=== PATIENT | female | born 1995 | race Caucasian/White ===

== ENCOUNTER → 2018-01-23 | Outpatient (CLI) | payer BC ==
[2018-01-23 17:03] LABS: ABSOLUTE EOSINOPHILS # (AUTO) 0.1 10^3/uL (0.0-0.6); ABSOLUTE MONOCYTES (AUTO) 0.5 10^3/uL (0.1-1.4); ABSOLUTE NEUT (AUTO) 3.2 10^3/uL (1.7-8.2); BASOPHILS % (AUTO) 0.7 % (0-2); HEMOGLOBIN 12.4 g/dL (12.0-15.5); LYMPHOCYTES % (AUTO) 33.9 % (13-45); MEAN CORPUSCULAR HEMOGLOBIN 28.6 pg (27.0-33.4); MEAN CORPUSCULAR HGB CONC 33.4 g/dL (32.0-36.0); MEAN CORPUSCULAR VOLUME 86 fl (80-97); PLATELET COUNT 253 10^3/uL (150-450); RED BLOOD COUNT 4.32 10^6/uL (3.72-5.28); RED CELL DISTRIBUTION WIDTH 13.8 % (11.5-14.0); SEGMENTED NEUTROPHILS % (AUTO) 55.4 % (42-78); TOTAL CELLS COUNTED % (AUTO) 100 %; WHITE BLOOD COUNT 5.7 10^3/uL (4.0-10.5)
[2018-01-23 17:20] LABS: ALANINE AMINOTRANSFERASE 20 U/L (9-52); ALBUMIN 4.2 g/dL (3.5-5.0); ALKALINE PHOSPHATASE 49 U/L (38-126); ANION GAP 13 (5-19); ASPARTATE AMINO TRANSFERASE 13 U/L (14-36); BILIRUBIN,DIRECT 0.2 mg/dL (0.0-0.4); BILIRUBIN,TOTAL 0.2 mg/dL (0.2-1.3); BLOOD UREA NITROGEN 12 mg/dL (7-20); CALCIUM 9.7 mg/dL (8.4-10.2); CARBON DIOXIDE 27 mmol/L (22-30); CHLORIDE 104 mmol/L (98-107); CHOLESTEROL 184.82 mg/dL (0-200); GLUCOSE 93 mg/dL (75-110); SODIUM 143.5 mmol/L (137-145); TOTAL PROTEIN 7.2 g/dL (6.3-8.2); TRIGLYCERIDES 130 mg/dL (<150)
[2018-01-23 17:31] LABS: DIRECT LDL 106 mg/dL (<100)
[2018-01-23 17:36] LABS: FREE T4 (FREE THYROXINE) 1.09 ng/dL (0.78-2.19)
[2018-01-23 17:50] LABS: THYROID STIMULATING HORMONE 1.37 uIU/mL (0.47-4.68)
== END ==
LOC: LAB 16:42
PROVIDERS: ATTEND Physician Assistant
DX: R94.6 Abnormal results of thyroid function studies (principal); Z13.220 Encounter for screening for lipoid disorders; Z79.899 Other long term (current) drug therapy
CPT/HCPCS: 36415; 80053; 80061; 84439; 84443; 85025

== ENCOUNTER → 2019-02-18 | Outpatient (CLI) | payer BC ==
[2019-02-18 16:36] LABS: ABSOLUTE EOSINOPHILS # (AUTO) 0.1 10^3/uL (0.0-0.6); ABSOLUTE LYMPHOCYTES (AUTO) 1.9 10^3/uL (0.5-4.7); ABSOLUTE MONOCYTES (AUTO) 0.5 10^3/uL (0.1-1.4); ABSOLUTE NEUT (AUTO) 3.7 10^3/uL (1.7-8.2); BASOPHILS % (AUTO) 0.6 % (0-2); EOSINOPHILS % (AUTO) 1.7 % (0-6); HEMOGLOBIN 12.8 g/dL (12.0-15.5); LYMPHOCYTES % (AUTO) 30.4 % (13-45); MEAN CORPUSCULAR HEMOGLOBIN 28.9 pg (27.0-33.4); MEAN CORPUSCULAR HGB CONC 33.8 g/dL (32.0-36.0); MEAN CORPUSCULAR VOLUME 86 fl (80-97); MONOCYTES % (AUTO) 7.7 % (3-13); PLATELET COUNT 250 10^3/uL (150-450); RED BLOOD COUNT 4.44 10^6/uL (3.72-5.28); RED CELL DISTRIBUTION WIDTH 13.4 % (11.5-14.0); SEGMENTED NEUTROPHILS % (AUTO) 59.6 % (42-78); TOTAL CELLS COUNTED % (AUTO) 100 %; WHITE BLOOD COUNT 6.2 10^3/uL (4.0-10.5)
[2019-02-18 16:48] LABS: ALANINE AMINOTRANSFERASE 19 U/L (9-52); ALBUMIN 4.6 g/dL (3.5-5.0); ALKALINE PHOSPHATASE 59 U/L (38-126); ANION GAP 8 (5-19); ASPARTATE AMINO TRANSFERASE 16 U/L (14-36); BILIRUBIN,DIRECT 0.1 mg/dL (0.0-0.4); BILIRUBIN,TOTAL 0.3 mg/dL (0.2-1.3); BLOOD UREA NITROGEN 15 mg/dL (7-20); CALCIUM 9.6 mg/dL (8.4-10.2); CARBON DIOXIDE 30 mmol/L (22-30); CHLORIDE 102 mmol/L (98-107); CHOLESTEROL 143.18 mg/dL (0-200); GLUCOSE 84 mg/dL (75-110); POTASSIUM 3.8 mmol/L (3.6-5.0); SODIUM 139.6 mmol/L (137-145); TOTAL PROTEIN 7.3 g/dL (6.3-8.2); TRIGLYCERIDES 131 mg/dL (<150)
[2019-02-18 17:00] LABS: DIRECT LDL 82 mg/dL (<100)
[2019-02-18 17:05] LABS: FREE T4 (FREE THYROXINE) 0.98 ng/dL (0.78-2.19)
[2019-02-18 17:19] LABS: THYROID STIMULATING HORMONE 1.66 uIU/mL (0.47-4.68)
== END ==
LOC: OD 15:56
PROVIDERS: ATTEND Physician Assistant
DX: Z13.220 Encounter for screening for lipoid disorders (principal); R94.6 Abnormal results of thyroid function studies; Z79.899 Other long term (current) drug therapy
CPT/HCPCS: 36415; 80053; 80061; 84439; 84443; 85025

== ENCOUNTER → 2019-08-27 | Outpatient (CLI) | payer BC ==
[2019-08-27 17:15] LABS: ABSOLUTE EOSINOPHILS # (AUTO) 0.1 10^3/uL (0.0-0.6); ABSOLUTE LYMPHOCYTES (AUTO) 1.4 10^3/uL (0.5-4.7); ABSOLUTE MONOCYTES (AUTO) 0.5 10^3/uL (0.1-1.4); ABSOLUTE NEUT (AUTO) 5.8 10^3/uL (1.7-8.2); BASOPHILS % (AUTO) 0.3 % (0-2); EOSINOPHILS % (AUTO) 1.8 % (0-6); HEMATOCRIT 34.6 % (36.0-47.0); HEMOGLOBIN 12.1 g/dL (12.0-15.5); LYMPHOCYTES % (AUTO) 17.9 % (13-45); MEAN CORPUSCULAR HEMOGLOBIN 30.7 pg (27.0-33.4); MEAN CORPUSCULAR HGB CONC 34.9 g/dL (32.0-36.0); MEAN CORPUSCULAR VOLUME 88 fl (80-97); MONOCYTES % (AUTO) 6.7 % (3-13); PLATELET COUNT 222 10^3/uL (150-450); RED BLOOD COUNT 3.94 10^6/uL (3.72-5.28); RED CELL DISTRIBUTION WIDTH 14.1 % (11.5-14.0); SEGMENTED NEUTROPHILS % (AUTO) 73.3 % (42-78); TOTAL CELLS COUNTED % (AUTO) 100 %; WHITE BLOOD COUNT 7.9 10^3/uL (4.0-10.5)
[2019-08-29 08:37] LABS: HEPATITIS C VIRUS AB 0.1 s/co ratio (0.0-0.9)
[2019-08-29 09:35] LABS: HEPATITS B SURFACE ANTIGEN Negative (Negative)
[2019-08-29 15:37] LABS: HGB A2 1.8 % (1.8-3.2); HGB SOLUBILITY RESULT Negative (Negative)
== END ==
LOC: OD 16:01
PROVIDERS: ATTEND Obstetrics & Gynecology
DX: Z34.01 Encounter for supervision of normal first pregnancy, first trimester (principal); Z13.0 Encounter for screening for diseases of the blood and blood-forming organs and certain disorders involving the immune mechanism; Z12.4 Encounter for screening for malignant neoplasm of cervix; Z11.3 Encounter for screening for infections with a predominantly sexual mode of transmission; Z13.29 Encounter for screening for other suspected endocrine disorder
CPT/HCPCS: 36415; 83020; 84443; 85025; 86592; 86701; 86762; 86803; 86804; 86850; 86900; 86901; 87086; 87088; 87340; 88142

== ENCOUNTER → 2019-10-01 | Outpatient (CLI) | payer BC ==
[2019-10-03 15:36] LABS: AFP MOM 1.08 (.)
[2019-10-04 13:48] LABS: GEST AGE BASED ON EDD (.)
== END ==
LOC: LAB 13:58
PROVIDERS: ATTEND Obstetrics & Gynecology
DX: Z36.89 Encounter for other specified antenatal screening (principal)
CPT/HCPCS: 36415; 82105

== ENCOUNTER → 2019-11-27 | Outpatient (CLI) | payer BC | LOC: OD 10:40 | PROVIDERS: ATTEND Obstetrics & Gynecology | DX: Z34.83 Encounter for supervision of other normal pregnancy, third trimester (principal); Z11.59 Encounter for screening for other viral diseases; Z11.4 Encounter for screening for human immunodeficiency virus [HIV]; Z11.3 Encounter for screening for infections with a predominantly sexual mode of transmission | CPT/HCPCS: 36415; 86592; 86701 ==

== ENCOUNTER 2020-02-16 21:08 | Outpatient (CLI) | payer BC ==
[2020-02-16 21:55] LABS: APPEARANCE,URINE CLOUDY; BILIRUBIN,URINE NEGATIVE (NEGATIVE); COLOR,URINE YELLOW; GLUCOSE, URINE 50 mg/dL (NEGATIVE); KETONES,URINE NEGATIVE (NEGATIVE); LEUKOCYTE ESTERASE,URINE SMALL (NEGATIVE); NITRITE,URINE NEGATIVE (NEGATIVE); PROTEIN,URINE 30 mg/dL (NEGATIVE); URINE SPECIFIC GRAVITY 1.024
[2020-02-16 22:18] LABS: URINE AMPHETAMINES SCREEN NEGATIVE; URINE BARBITURATES SCREEN NEGATIVE; URINE BENZODIAZEPINES SCREEN NEGATIVE; URINE COCAINE SCREEN NEGATIVE; URINE MARIJUANA (THC) SCREEN NEGATIVE; URINE METHADONE SCREEN NEGATIVE; URINE PHENCYCLIDINE SCREEN NEGATIVE
--- NOTE | 2020-02-16 23:04 | Non Stress Test Report ---
Non Stress Test Datetime Report Generated by CPN: 02/16/2020 23:04 DEMOGRAPHIC EGA NST: 40.1 VITAL SIGNS Temperature - NST: 98.5 Pulse - NST: 101 RESP - NST: 17 NBPSYS NST: 117 NBPDIA NST: 66 URINE RESULTS Urine Protein, NST: Positive Urine Ketones - NST: Negative Urine Glucose - NST: Positive Urine Blood - NST: Positive MONITORING Monitor Explained: Monitor Explained; Test Explained; Patient Verbalized Understanding Time on Monitor: 02/16/2020 21:21 Time off Monitor: 02/16/2020 22:36 NST Duration: 75 NST INTERVENTIONS NST Interventions: PO Hydration; Reposition Patient Physician Notified NST: Dr. Hasmukh BABY A: [id number] BABY A Movement : Present Contraction Frequency : x5 with irritability FHR Baseline : 125 Accelerations : 15X15 Decelerations : None Variability : Moderate 6-25bpm NST Review: Meets Criteria for Reactive NST NST Review and Verified By : ALETA Moore NST Results: Reactive NST REPORT Report Trigger: Send Report
== END 2020-02-16 22:52 | disposition home or self-care (01) ==
LOC: LC 21:08
PROVIDERS: ATTEND Obstetrics & Gynecology
DX: O48.0 Post-term pregnancy (principal); Z3A.40 40 weeks gestation of pregnancy
CPT/HCPCS: 59025; 80307; 81005

== ENCOUNTER 2020-02-17 14:13 | Inpatient (IN) | payer BC ==
[2020-02-17] MEDS ORDERED: RINGERS SOLUTION,LACTATED 1,000 ML IV ONE (14:23)
[2020-02-17] MEDS ORDERED: PENICILLIN G-K 5 MILLION UNIT VIAL ONE ×2 (14:29→18:58)
[2020-02-17] MEDS ORDERED: RINGERS SOLUTION,LACTATED 1,000 ML IV PRN (14:51)
[2020-02-17] MEDS ORDERED: MISOPROSTOL 0.2 MG TABLET ONE (14:52)
[2020-02-17] MEDS ORDERED: OXYTOCIN 10 UNIT/ML VIAL ONE (14:52)
[2020-02-17] MEDS ORDERED: LIDOCAINE 1% INJ-PF (10 MG/ML) 30 ML SDV ONE (14:53)
[2020-02-17] MEDS ORDERED: OXYTOCIN/0.9 % SODIUM CHLORIDE 30 UNIT/500 ML RTUINJ ONE (14:53)
[2020-02-17] MEDS ORDERED: PENICILLIN G POTASSIUM 5,000,000 UNIT in DEXTROSE 5%-WATER 100 ML IV ONE (15:00)
[2020-02-17] MEDS ORDERED: EPHEDRINE SULFATE INJ 50 MG/1 ML AMPULE ONE (15:02)
[2020-02-17] MEDS ORDERED: FENTANYL/BUPIVACAINE/NS/PF 300 MCG/150 ML RTUINJ EPI ONE (15:02)
[2020-02-17] MEDS ORDERED: BUPIVACAINE HCL 0.25 % INJ/PF (2.5 MG/1 ML) 30 ML VIAL ONE ×2 (15:03→22:42)
[2020-02-17 15:53] LABS: APPEARANCE,URINE SLIGHTLY-CLOUDY; BILIRUBIN,URINE NEGATIVE (NEGATIVE); COLOR,URINE YELLOW; GLUCOSE, URINE NEGATIVE (NEGATIVE); KETONES,URINE NEGATIVE (NEGATIVE); LEUKOCYTE ESTERASE,URINE TRACE (NEGATIVE); NITRITE,URINE NEGATIVE (NEGATIVE); PROTEIN,URINE NEGATIVE (NEGATIVE); URINE SPECIFIC GRAVITY 1.014; UROBILINOGEN,URINE NEGATIVE mg/dL (<2.0)
[2020-02-17 15:53] LABS: ABSOLUTE LYMPHOCYTES (AUTO) 0.9 10^3/uL (0.5-4.7); ABSOLUTE MONOCYTES (AUTO) 0.6 10^3/uL (0.1-1.4); ABSOLUTE NEUT (AUTO) 5.7 10^3/uL (1.7-8.2); BASOPHILS % (AUTO) 0.2 % (0-2); EOSINOPHILS % (AUTO) 0.6 % (0-6); HEMATOCRIT 34.3 % (36.0-47.0); HEMOGLOBIN 11.7 g/dL (12.0-15.5); LYMPHOCYTES % (AUTO) 12.9 % (13-45); MEAN CORPUSCULAR HEMOGLOBIN 29.3 pg (27.0-33.4); MEAN CORPUSCULAR HGB CONC 34.1 g/dL (32.0-36.0); MEAN CORPUSCULAR VOLUME 86 fl (80-97); MONOCYTES % (AUTO) 8.2 % (3-13); PLATELET COUNT 208 10^3/uL (150-450); RED BLOOD COUNT 3.99 10^6/uL (3.72-5.28); RED CELL DISTRIBUTION WIDTH 16.4 % (11.5-14.0); SEGMENTED NEUTROPHILS % (AUTO) 78.1 % (42-78); TOTAL CELLS COUNTED % (AUTO) 100 %; WHITE BLOOD COUNT 7.3 10^3/uL (4.0-10.5)
--- NOTE | 2020-02-17 16:00 | Admission Physical ---
Datetime Report Generated by CPN: 02/17/2020 16:00 CURRENT ADMISSION Chief Complaint: Uterine Contractions Indication for Induction: Not Applicable Admit Impression : Term, Intrauterine ; Active Labor Admit Plan: Admit to Unit; Initiate Labor Protocol ALLERGIES Medication Allergies: No Medication Allergies: No Known Allergies (02/16/2020) Latex: No Latex Allergies Food Allergies: n/a Environmental Allergies: n/a OBSTETRICAL HISTORY EDC: 02/15/2020 00:00 : 1 Para: 0 Term: 0 : 0 SAB: 0 IAB: 0 Ectopic: 0 Livin Cesareans: 0 VBACs: 0 Multiple Births: 0 Gestational Diabetes: No Rh Sensitization: No Incompetent Cervix: No ALIE: No Infertility: No ART Treatment: No Uterine Anomaly: No IUGR: No Hx Previous C/S: No Macrosomia: No Hx Loss/Stillborn: No PIH: No Hx : No Placenta Previa/Abruption: No Depression/PP Depression: No PTL/PROM: No Post Hemorrhage: No Current Procedures: Ultrasound Obstetrical History Comments: G1- Current SEE RECORDS Alcohol: No Marijuana : No Cocaine: No Other Illicit Drugs: No Cigarettes: Never Smoker. [id number] MEDICAL HISTORY Diabetes: No Blood Transfusion: No Pulmonary Disease (Asthma, TB): No Breast Disease: No Hypertension: No Sky Diver Surgery: No Heart Disease: No Hosp/Surgery: Yes Autoimmune Disorder: No Anesthetic Complications: No Kidney Disease: No Abnormal Pap Smear: No Neuro/Epilepsy: No Psychiatric Disorders: No Other Medical Diseases: No Hepatitis/Liver Disease: No Significant Family History: No Varicosities/Phlebitis: No Trauma/Violence : No Thyroid Dysfunction: No Medical History Comments: wisdom teeth, varicose veins stripped INFECTIOUS HISTORY Gonorrhea: No Genital Herpes: No Chlamydia: No Tuberculosis: No Syphilis: No Hepatitis: No HIV/AIDS Exposure: No Rash or Viral Illness: No HPV: No PHYSICAL EXAM General: Normal HEENT: Normal Neurologic: Normal Thyroid: Deferred Heart: Normal Lungs: Normal Breast: Deferred Back: Normal Abdomen: Normal Genitourinary Exam: Normal Extremities: Normal DTRs: Deferred Pelvic Type: Adequate Vital Signs: Reviewed; Within Normal Limits VAGINAL EXAM Dilatation: 5 Effacement: 90 Station: -1 Contraction Comments: q 2mins MEMBRANES Pooling: Negative Membranes: Intact FETUS A EGA: 40.2 Monitoring: External US FHR- Baseline: 135 Variability: Moderate 6-25bpm Accelerations: 15X15 Decelerations: Variable FHR Category: Category II Estimated Weight (gm): 4000 Presentation: Vertex Admit Comment: at 40w2d by first trimester sono (unsure of LMP). sent from office for cervical exam 5cm and frquent contractions. admitted for active labor, GBS pos. P:penicillin for GBS prophylaxis, anticipate PLANS FOR LABOR AND DELIVERY Labor and Delivery: None Pain Management: Medications; Epidural Feeding Preference: Breast Benefit of Breast Feed Discussed: Yes Circumcision: Yes INFORMED CONSENT Assignment: Toshia Hogan MD Signature: with User ID: [email or web address] : with User ID: [email or web address]
[2020-02-17 16:11] LABS: URINE AMPHETAMINES SCREEN NEGATIVE; URINE BARBITURATES SCREEN NEGATIVE; URINE BENZODIAZEPINES SCREEN NEGATIVE; URINE COCAINE SCREEN NEGATIVE; URINE MARIJUANA (THC) SCREEN NEGATIVE; URINE METHADONE SCREEN NEGATIVE; URINE PHENCYCLIDINE SCREEN NEGATIVE
[2020-02-17] MEDS: PENICILLIN G POTASSIUM 2,500,000 UNIT in DEXTROSE 5%-WATER 50 ML IV SCH ×2 (19:03→22:54)
[2020-02-18] MEDS: PENICILLIN G POTASSIUM 2,500,000 UNIT in DEXTROSE 5%-WATER 50 ML IV SCH ×2 (03:58→11:50)
[2020-02-18] MEDS ORDERED: IBUPROFEN 800 MG TABLET ONE (06:20)
[2020-02-18] MEDS ORDERED: PROMETHAZINE HCL INJ 25 MG/1 ML VIAL IV PRN (06:34)
[2020-02-18] MEDS ORDERED: ACETAMINOPHEN 650 MG SUPP.RECT PR PRN (06:34)
[2020-02-18] MEDS ORDERED: MEASLES,MUMPS&RUBELLA VACC/PF 0.5 ML VIAL SUBCUT PRN (06:34)
[2020-02-18] MEDS ORDERED: GLYCERIN/WITCH HAZEL LEAF 1 EACH MED..WIPE TP PRN (06:34)
[2020-02-18] MEDS ORDERED: NA PHOS,M-B/NA PHOS,DI-BA (ADULT) 133 ML ENEMA PR PRN (06:34)
[2020-02-18] MEDS ORDERED: DIPH/PERTUSS(ACELL)/TETANUS VAC/PF 0.5 ML SYR (>=10YO) IM PRN (06:34)
[2020-02-18] MEDS ORDERED: PROMETHAZINE HCL 25 MG SUPP.RECT PR PRN (06:34)
[2020-02-18] MEDS ORDERED: PROMETHAZINE HCL 25 MG TABLET PO PRN (06:34)
[2020-02-18] MEDS ORDERED: PSEUDOEPHEDRINE HCL 30 MG TABLET PO PRN (06:34)
[2020-02-18] MEDS ORDERED: OXYTOCIN/0.9 % SODIUM CHLORIDE 30 UNIT/500 ML RTUINJ IV PRN (06:34)
[2020-02-18] MEDS ORDERED: BENZOCAINE/MENTHOL AEROSOL SPRAY 56 ML TOP PRN (06:34)
[2020-02-18] MEDS ORDERED: DIPHENHYDRAMINE HCL 25 MG CAPSULE PO PRN (06:34)
[2020-02-18] MEDS ORDERED: DIBUCAINE 1% OINTMENT 28 GM TP PRN (06:34)
[2020-02-18] MEDS ORDERED: ZOLPIDEM TARTRATE 5 MG TABLET PO PRN (06:34)
[2020-02-18] MEDS ORDERED: ACETAMINOPHEN WITH CODEINE #3 TABLET PO PRN ×2 (06:34)
[2020-02-18] MEDS ORDERED: MAGNESIUM HYDROXIDE SUSP 30 ML UDCUP PO PRN (06:34)
[2020-02-18] MEDS ORDERED: CEFAZOLIN 2 GM/D5W RTU 2 GM/50 ML RTUPB IV ONE ×2 (06:40→07:00)
--- NOTE | 2020-02-18 10:00 | Delivery Summary ---
Del Sum A-C Datetime Report Generated by CPN: 02/18/2020 10:00 DELIVERY PERSONNEL DELIVERY PERSONNEL: [id number] Delivery Doctor:: Toshia Hogan MD LICENSED OPTICIAN:: Tony Burgos LICENSED OPTICIAN Labor and Delivery Nurse:: Ann-Marie Parra RN Nursery Nurse:: Becky Salmeron Freight Router/SHELTER ADVOCATE: Sonia Echevarria, SMALL ARMS REPAIRER MATERNAL INFORMATION Delivery Anesthesia: Epidural Medications After Delivery: Pitocin 30 Units in 500ml NS/D5W Delivery QBL: 300 Maternal Complications: None Provider Comments: Called to room as patient was completely dilated and plus 2 station. Delivered after a period of pushing in vertex presentation. After delivery of the head, the shoulders and rest of the body delivered easily. Male infant vigorous at delivery. Oral suctioning and placed on Mother's chest. Cord clampling delayed 30 seconds. Third degree laceration repaired as above. Both Mother and stable. LABOR SUMMARY EDC: 02/15/2020 00:00 No. Babies in Womb: 1 Attempted: No Labor Anesthesia: Epidural LABOR INFORMATION Reason for Induction: Not Applicable Onset of Labor: 02/18/2020 16:35 Complete Dilatation: 02/18/2020 01:54 Oxytocin: Augmentation Group B Beta Strep: Positive Antibiotics # of Doses: 4 Antibiotics Time of Last Dose: 035 Name of Antibiotic Given: PCN Steroids Given: None Reason Steroids Not Administered: Not Applicable MEMBRANES Membranes Rupture Method: Spontaneous Rupture of Membranes: 02/18/2020 00:18 Length of Rupture (hr): 4.90 Amniotic Fluid Color: Clear Amniotic Fluid Amount: Large Amniotic Fluid Odor: Normal STAGES OF LABOR Stage 1 hr: -14 Stage 1 min: -41 Stage 2 hr: 3 Stage 2 min: 18 Stage 3 hr: 0 Stage 3 min: 3 Total Time in Labor hr: -11 Total Time in Labor min: -20 VAGINAL DELIVERY Episiotomy: None Laceration #1: Vaginal Laceration Extension #1: Third Degree, IIIa (Less than 50 percent ext anal sphincter thickness torn) Laceration Repair: Yes Laceration Repair Note: Repaired third degree laceration with 2-0 chromic with interrupted to reapproximate the rectal and perineal muscles. Superficial layer iwth 2-0 chromic in a running fashion Sponge Count Correct: Yes Sharps Count Correct: Yes CSECTION DELIVERY Primary Indication: N/A Secondary Indication: N/A CSection Incidence: N/A Labor: N/A Elective: N/A CSection Incision: N/A BABY A INFORMATION Delivery Date/Time: 02/18/2020 05:12 Method of Delivery: Vaginal Nurse Controlled Delivery: No Born in Route : No : N/A Forceps: N/A Vacuum Extraction: N/A Shoulder Dystocia : No PRESENTATION/POSITION BABY A Presentation: Cephalic Cephalic Presentation: Vertex Vertex Position: Left Occipital Anterior Breech Presentation: N/A PLACENTA INFORMATION BABY A Placenta Delivery Time : 02/18/2020 05:15 Placenta Method of Delivery: Spontaneous Placenta Status: Delivered SCORES BABY A Heart Rate 1 min: >100 bpm Resp Effort 1 min: Good Cry Reflex Irritability 1 min: Cough or Sneeze or Pulls Away Muscle Tone 1 min: Active Motion Color 1 min: Blue/Pale SCORE 1 MIN: 8 Heart Rate 5 min: >100 bpm Resp Effort 5 min: Good Cry Reflex Irritability 5 min: Cough or Sneeze or Pulls Away Muscle Tone 5 min: Active Motion Color 5 min: Body [place], Extremities Blue SCORE 5 MIN: 9 INFANT INFORMATION BABY A Gestational Age at Delivery: 40.3 Gestational Status: Full Term- 39- 40.6 Weeks Infant Outcome : Liveborn Condition : Stable Infant Sex: Male IDENTIFICATION BABY A Verification Date/Time: 02/18/2020 05:35 ID Band Number: [id number] Mother's Name Verified: Yes RN Verifying Infant: E. Jilek RN/ S. Wale WEIGHT/LENGTH BABY A Birthweight (gm): 4160 Weight (lb): 9 Weight (oz): 3 Length (in): 21.00 Length (cm): 53.34 CORD INFORMATION BABY A No. Cord Vessels: 3 Nuchal Cord : N/A Cord Blood Taken: Yes-For Eval (Mom's Blood Type - or O+) Infant Suction: Mouth ASSESSMENT BABY A Respirations: Appears Normal Skin to Skin: No Skin to Skin Time (min): 60 Band Attacher/ALS Called : No BABY B INFORMATION : N/A SIGNATURES Signature: with User ID: Ru : with User ID: [id number] : I was personally available for consultation and serving as supervising physician for the MLP.
[2020-02-18] MEDS: PRENATAL VITAMIN W DHA CAPSULE PO SCH (10:47)
[2020-02-18] MEDS: SENNOSIDES/DOCUSATE 8.6-50 MG 1 EACH TABLET PO SCH (10:47)
[2020-02-18] MEDS: DOCUSATE SODIUM 100 MG CAPSULE PO SCH ×2 (10:47→17:36)
[2020-02-18] MEDS: FAMOTIDINE 20 MG TABLET PO SCH ×2 (10:47→21:35)
[2020-02-18] MEDS: FERROUS SULFATE 325 MG TABLET PO SCH ×2 (10:47→17:36)
[2020-02-18] MEDS: IBUPROFEN 800 MG TABLET PO SCH ×3 (11:47→21:33)
[2020-02-19] MEDS: IBUPROFEN 800 MG TABLET PO SCH ×3 (05:20→23:32)
[2020-02-19 08:33] LABS: HEMATOCRIT 22.6 % (36.0-47.0); MEAN CORPUSCULAR HEMOGLOBIN 29.4 pg (27.0-33.4); MEAN CORPUSCULAR HGB CONC 34.2 g/dL (32.0-36.0); MEAN CORPUSCULAR VOLUME 86 fl (80-97); PLATELET COUNT 164 10^3/uL (150-450); RED BLOOD COUNT 2.63 10^6/uL (3.72-5.28); RED CELL DISTRIBUTION WIDTH 16.7 % (11.5-14.0); WHITE BLOOD COUNT 9.1 10^3/uL (4.0-10.5)
[2020-02-19 09:05] LABS: HEMOGLOBIN 7.7 g/dL (12.0-15.5)
[2020-02-19] MEDS ORDERED: IRON SUCROSE COMPLEX INJ/PF 100 MG/5 ML SDV IV ONE (10:15)
--- NOTE | 2020-02-19 10:33 | PDOC PROGRESS REPORT ---
Subjective-OB Progress Note for:: 02/19/20 - PP Day #1, doing well, UOB, voiding, no complaints, Hx 3rd degree laceration at delivery, Pt states minimal discomfort so far, O+, rubella immune Physical Exam (OB) Vital Signs: Temp Pulse Resp BP Pulse Ox 98.1 F 80 16 94/51 L 94 02/19/20 07:59 02/19/20 07:59 02/19/20 07:59 02/19/20 07:59 02/19/20 07:59 Intake & Output 02/18/20 02/19/20 02/20/20 06:59 06:59 06:59 Intake Total 600 Balance 600 Weight 73.5 kg - General General Appearance: Appears well, Alert In distress: None - PIH/Pre-Eclampsia Headache: Absent Epigastric Pain: No Visual Changes: No - Lochia Lochia Amount: Scant < 10 ml Lochia Color: Rubra/Red - Abdomen Description: Soft Hernia Present: No Fundal Description: Firm, Midline Fundal Height: u/u - u/2 - Respiratory Respiratory Status: No respiratory distress - Abdominal Distension: No distension Tenderness: Nontender - Genitourinary Genitourinary Note: voiding - Extremities Upper extremity: Normal inspection Lower extremities: Normal inspection - Neurological Cognition: Normal Orientation: AAOx4 - Psychological Associated symptoms: Normal affect, Normal mood - Skin Skin Temperature: Warm Skin Moisture: Dry Objective-Diagnostic Laboratory: 02/19/20 07:00 02/19/20 07:00 WBC 9.1 RBC 2.63 L Hgb 7.7 L D Hct 22.6 L MCV 86 MCH 29.4 MCHC 34.2 RDW 16.7 H Plt Count 164 Assessment and Plan(PN) - Assessment and Plan (2) Obstetrical laceration, third degree Is this a current diagnosis for this admission?: Yes (3) Vaginal delivery Is this a current diagnosis for this admission?: Yes Plan: Increase fiber, stool softner, ambulation encouraged, Drink plenty of fluids, Ro utine PP orders - Time Spent with Patient Time with patient: Less than 15 minutes Medications reviewed and adjusted accordingly: Yes - Disposition Anticipated Discharge: Home Within: within 24 hours
[2020-02-19] MEDS: FERROUS SULFATE 325 MG TABLET PO SCH ×2 (11:07→17:36)
[2020-02-19] MEDS: SENNOSIDES/DOCUSATE 8.6-50 MG 1 EACH TABLET PO SCH (11:07)
[2020-02-19] MEDS: DOCUSATE SODIUM 100 MG CAPSULE PO SCH ×2 (11:07→17:36)
[2020-02-19] MEDS: PRENATAL VITAMIN W DHA CAPSULE PO SCH (11:07)
[2020-02-19] MEDS: FAMOTIDINE 20 MG TABLET PO SCH ×2 (11:07→23:34)
[2020-02-20] MEDS: IBUPROFEN 800 MG TABLET PO SCH ×2 (06:11→14:06)
[2020-02-20] MEDS: DOCUSATE SODIUM 100 MG CAPSULE PO SCH (10:06)
[2020-02-20] MEDS: PRENATAL VITAMIN W DHA CAPSULE PO SCH (10:06)
[2020-02-20] MEDS: FERROUS SULFATE 325 MG TABLET PO SCH (10:06)
[2020-02-20] MEDS: SENNOSIDES/DOCUSATE 8.6-50 MG 1 EACH TABLET PO SCH (10:06)
[2020-02-20] MEDS: FAMOTIDINE 20 MG TABLET PO SCH (10:06)
--- NOTE | 2020-02-20 10:07 | PDOC PROGRESS REPORT ---
Subjective-OB Progress Note for:: 02/20/20 Subjective: Doing well, no c/o, , voiding, no bm Physical Exam (OB) Vital Signs: Temp Pulse Resp BP Pulse Ox 98.0 F 93 18 91/57 L 100 02/20/20 07:33 02/20/20 07:33 02/20/20 07:33 02/20/20 07:33 02/20/20 07:33 Intake & Output 02/19/20 02/20/20 02/21/20 06:59 06:59 06:59 Intake Total 600 600 Balance 600 600 - PIH/Pre-Eclampsia Headache: Absent Epigastric Pain: No Visual Changes: No - Lochia Lochia Amount: Small 10-25 ml Lochia Color: Rubra/Red - Abdomen Description: Tender, Soft Hernia Present: No Fundal Description: Firm, Midline Fundal Height: u/u - u/2 Objective-Diagnostic Laboratory: 02/19/20 07:00 Assessment and Plan(PN) - Assessment and Plan (1) Acute blood loss anemia Is this a current diagnosis for this admission?: Yes (2) Vaginal delivery Is this a current diagnosis for this admission?: Yes (3) Obstetrical laceration, third degree Is this a current diagnosis for this admission?: Yes - Time Spent with Patient Time with patient: Less than 15 minutes Medications reviewed and adjusted accordingly: Yes - Disposition Anticipated Discharge: Home Within: within 24 hours
--- NOTE | 2020-02-20 10:11 | PDOC DISCHARGE SUMMARY ---
Impression - Admit/DC Date/PCP Admission Date/Primary Care Provider: 02/17/20 14:56 ELMA MASTERSON MD Discharge Date: 02/20/20 - Discharge Diagnosis (1) Acute blood loss anemia Is this a current diagnosis for this admission?: Yes (2) Vaginal delivery Is this a current diagnosis for this admission?: Yes (3) Obstetrical laceration, third degree Is this a current diagnosis for this admission?: Yes - Additional Information Resuscitation Status: Full Code Discharge Diet: As Tolerated, Regular Discharge Activity: Activity As Tolerated Referrals: ELMA MASTERSON MD [Primary Care Provider] - (wha 4 weeks) Home Medications: Vit,Calc76/Iron/Folic [Prenatabs Rx Tablet] 1 tab PO DAILY 02/16/20 Dibucaine 1% Ointment [Nupercainal 1% Oint 28 gm] 1 applic TP PRN PRN tube 02/20/20 Glycerin/Witch Yamini Sultana [Tucks Take-Alongs Wipe] 1 each TP DAILYP PRN med..pad 02/20/20 HPI Gestational Age: 40.3 Reason(s) for Admission: PROM Admission Note: augmentation Procedures: NST, Ultrasound Intrapartum Procedure(s): Spontaneous Vaginal Delivery Complication(s): Laceration-Vaginal Laceration-Degree: 3rd Hospital Course Hospital Course: routine Results Laboratory Results: WBC 9.1 10^3/uL (4.0-10.5) 02/19/20 07:00 RBC 2.63 10^6/uL (3.72-5.28) L 02/19/20 07:00 Hgb 7.7 g/dL (12.0-15.5) L D 02/19/20 07:00 Hct 22.6 % (36.0-47.0) L 02/19/20 07:00 MCV 86 fl (80-97) 02/19/20 07:00 MCH 29.4 pg (27.0-33.4) 02/19/20 07:00 MCHC 34.2 g/dL (32.0-36.0) 02/19/20 07:00 RDW 16.7 % (11.5-14.0) H 02/19/20 07:00 Plt Count 164 10^3/uL (150-450) 02/19/20 07:00 Lymph % (Auto) 12.9 % (13-45) L 02/17/20 15:33 [place] % (Auto) 8.2 % (3-13) 02/17/20 15:33 Eos % (Auto) 0.6 % (0-6) 02/17/20 15:33 Baso % (Auto) 0.2 % (0-2) 02/17/20 15:33 Absolute Neuts (auto) 5.7 10^3/uL (1.7-8.2) 02/17/20 15:33 Absolute Lymphs (auto) 0.9 10^3/uL (0.5-4.7) 02/17/20 15:33 Absolute Monos (auto) 0.6 10^3/uL (0.1-1.4) 02/17/20 15:33 Absolute Eos (auto) 0.0 10^3/uL (0.0-0.6) 02/17/20 15:33 Absolute Basos (auto) 0.0 10^3/uL (0.0-0.2) 02/17/20 15:33 Seg Neutrophils % 78.1 % (42-78) H 02/17/20 15:33 Urine Color YELLOW 02/17/20 15:14 Urine Appearance SLIGHTLY-CLOUDY 02/17/20 15:14 Urine pH 6.0 (5.0-9.0) 02/17/20 15:14 Ur Specific [place] 1.014 02/17/20 15:14 Urine Protein NEGATIVE mg/dL (NEGATIVE) 02/17/20 15:14 Urine Glucose (UA) NEGATIVE mg/dL (NEGATIVE) 02/17/20 15:14 Urine Ketones NEGATIVE mg/dL (NEGATIVE) 02/17/20 15:14 Urine Blood MODERATE (NEGATIVE) H 02/17/20 15:14 Urine Nitrite NEGATIVE (NEGATIVE) 02/17/20 15:14 Urine Bilirubin NEGATIVE (NEGATIVE) 02/17/20 15:14 Urine Urobilinogen NEGATIVE mg/dL (<2.0) 02/17/20 15:14 Ur Leukocyte Esterase TRACE (NEGATIVE) H 02/17/20 15:14 Urine Ascorbic Acid NEGATIVE (NEGATIVE) 02/17/20 15:14 Urine Opiates Screen NEGATIVE 02/17/20 15:14 Urine Methadone Screen NEGATIVE 02/17/20 15:14 Ur Barbiturates Screen NEGATIVE 02/17/20 15:14 Ur Phencyclidine Scrn NEGATIVE 02/17/20 15:14 Ur Amphetamines Screen NEGATIVE 02/17/20 15:14 U Benzodiazepines Scrn NEGATIVE 02/17/20 15:14 Urine Cocaine Screen NEGATIVE 02/17/20 15:14 U Marijuana (THC) Screen NEGATIVE 02/17/20 15:14 RPR NONREACTIVE (NONREACTIVE) 02/17/20 15:33 Blood Type O POSITIVE 02/17/20 15:33 Antibody Screen NEGATIVE 02/17/20 15:33 Plan Health Concerns: third degree, no enemas,or supp in rectum Plan of Treatment: discharge home, iron in 3 weeks Goals: no complications Time Spent: Less than 30 Minutes
[2020-02-20 11:23] VITALS: BP 91/57
== END 2020-02-20 14:39 | disposition home or self-care (01) | DRG 768 ==
LOC: LC 14:13 → LR 14:56 → 2S 02-18 10:22
PROVIDERS: ADMIT Obstetrics & Gynecology; ATTEND Obstetrics & Gynecology
PROC: 10E0XZZ Delivery of Products of Conception, External Approach (ICD-10-PCS; principal; 2020-02-18)
PROC: 0DQR0ZZ Repair Anal Sphincter, Open Approach (ICD-10-PCS; 2020-02-18)
DX: O99.824 Streptococcus B carrier state complicating childbirth (principal); Z37.0 Single live birth; D62 Acute posthemorrhagic anemia; O90.81 Anemia of the puerperium; O70.21 Third degree perineal laceration during delivery, IIIa; Z3A.40 40 weeks gestation of pregnancy
CPT/HCPCS: 1967; 36415; 80307; 81005; 85025; 85027; 86592; 86850; 86900; 86901; 94760; J0690; J1756; J2540; J2590; J3010; J3490; J7060

== ENCOUNTER → 2020-03-09 | Outpatient (CLI) | payer BC ==
[2020-03-09 11:26] VITALS: BP 88/49
--- NOTE | 2020-03-09 11:26 | ER RDC ASSESSMENT REPORT ---
Intake - In the Last 14 days Have you traveled outside [place]?: No Have you been in close contact with someone CONFIRMED: No Worked in Healthcare?: Yes - Symptoms Subjective Fever([place] feverish): Yes Chills: Yes Muscule Aches: Yes Runny Nose: No Sore Throat: No Cough (New or worsening chronic cough): No Shortness of breath: No Nausea or Vomiting: Yes Headache: Yes Abdominal Pain: No Diarrhea(3 or more loose stools in last 24 hours): No - Do you have any of the following Chronic lung disease: Asthma or emphysema or COPD: No Cystic Fibrosis: No Diabetes: No High Blood Pressure: No Cardiovascular Disease: No Chronic Kidney Disease: No Chronic Liver Disease: No Chronic blood disorder like Sickle Cell Disease: No Weak immune system due to disease or medication: No Neurologic condition that limits movement: No Developmental delay - Moderate to Severe: No Recent (within past 2 weeks) or current : Yes Morbid Obesity (>100 pounds over ideal weight): No - Objective Vital Signs: 5 feet 6 inches 135 pounds Temperature: 99.6 F Pulse Rate: 96 Respiratory Rate: 15 Blood Pressure: 88/49 O2 Sat by Pulse Oximetry: 96 Objective: Given above, testing performed: Flu COVID Disposition: Home; Selfcare General - General Chief Complaint: Flu Symptoms Time Seen by Provider: 03/09/20 11:15 Mode of Arrival: Ambulatory Information source: Patient - [facility] Notes: 24-year-old female presents to [facility] clinic for COVID-19 testing. Patient denies any known exposure to COVID positive individual. Patient is employed in healthcare; however, has been on maternity leave. Patient is 2 weeks. Patient reports onset of symptoms 03/06/2020. She is reporting fever, chills, myalgia, nausea, and headache. T-max was 103.3. She notes the fever dropped this morning to low-grade. Patient denies any shortness of breath, cough, sore throat, runny nose, or diarrhea. - Related Data Allergies/Adverse Reactions: No Known Allergies Allergy (Unverified 02/16/20 21:15) Past Medical History - General Information source: Patient - Social History Smoking Status: Never Smoker - Past Medical History Cardiac Medical History: Reports: None Pulmonary Medical History: Reports: None EENT Medical History: Reports: None Neurological Medical History: Reports: None Endocrine Medical History: Reports: None Renal/ Medical History: Reports: None Malignancy Medical History: Reports: None GI Medical History: Reports: None Musculoskeletal Medical History: Reports None Skin Medical History: Reports None Psychiatric Medical History: Reports: None Traumatic Medical History: Reports: None Infectious Medical History: Reports: None Past Surgical History: Reports: None Physical Exam - General General appearance: Appears well, Alert In distress: None Notes: PHYSICAL EXAMINATION: GENERAL: Well-appearing and in no acute distress. HEAD: Atraumatic, normocephalic. EYES: sclera anicteric, conjunctiva are normal. ENT: nares patent. Moist mucous membranes. NECK: Normal range of motion, supple without lymphadenopathy LUNGS: CTAB and equal. No wheezes rales or rhonchi. HEART: Regular rate and rhythm without murmurs ABDOMEN: Soft, nontender, normal bowel sounds, no guarding. EXTREMITIES: Normal range of motion, no pitting edema. No cyanosis. NEUROLOGICAL: Cranial nerves grossly intact. Normal speech. PSYCH: Normal mood, normal affect. SKIN: Warm, Dry, normal turgor, no rashes or lesions noted Diagnostic Results Laboratory Results: Flu A and B negative, COVID pending Patient Education/Counseling Counseling/Education: Patient presents with upper respiratory symptoms worrisome for possible Covid 19. Patient does not have emergency worrying symptoms such as difficulty breathing, shortness of breath, chest pain, pressure, confusion or cyanosis. Patient appears suitable for discharge as vital signs are stable and patient is nontoxic in appearance. Good return precautions have been discussed with patient, patient verbalized understanding and is agreeable with discharge plan of care at this time. Guidance for worsening S/SX: As a person under investigation for Covid 19, the [place] department of Health and Human Services, division of public health advises you to adhere to the following guidance until your test results are reported to you. If your test result is positive, you will receive additional information from your provider and your local health department at that time. Remain at home until you are cleared by the health provider or public health authorities. Keep a log of visitors to your home, notify any visitors to your home of your isolation status. If you plan to move to a new address or leave the county, notify the local health department in your County. Call your doctor or seek care if you have an urgent medical need. Before seeking medical care, call ahead to get instructions from the provider before arriving at the medical office clinic or hospital. Notify them that you are being tested for the virus that causes Covid 19 so that arrangements can be made, as necessary, to prevent transmission to others in the healthcare setting. Next, notify the local health department in your county. If a medical emergency arises and you need to call 911, inform the first responders that you are being tested for the virus that causes Covid 19. Next, notify the local health department in your county. RDC Discharge - Discharge Clinical Impression: Encounter for screening laboratory testing for COVID-19 virus Upper respiratory infection Qualifiers: URI type: unspecified URI Qualified Code(s): J06.9 - Acute upper respiratory infection, unspecified Condition: Good Disposition: Home; Selfcare
[2020-03-09 12:43] LABS: A TYPE INFLUENZA AG NEGATIVE (NEGATIVE); B INFLUENZA AG NEGATIVE (NEGATIVE)
== END ==
LOC: RDC 10:13
PROVIDERS: ATTEND Registered Nurse
DX: O86.4 Pyrexia of unknown origin following delivery (principal); J06.9 Acute upper respiratory infection, unspecified; Z20.828 Contact with and (suspected) exposure to other viral communicable diseases; M79.10 Myalgia, unspecified site; R11.0 Nausea; R51 Headache
CPT/HCPCS: 87635; 87804; C9803; 99201; 99211

== ENCOUNTER → 2020-08-06 | Outpatient (CLI) | payer BC ==
[~2020-08-06] MED LIST: COVID-19 VACCINE (PFIZER)/PF 30 MCG/0.3 ML VIAL IM ONE; EPINEPHRINE INJ/PF 1 MG/1 ML AMPULE IM PRN
== END ==
LOC: EMPHEALTH 10:28
PROVIDERS: ATTEND Internal Medicine
DX: Z23 Encounter for immunization (principal)
CPT/HCPCS: 91300

== ENCOUNTER → 2020-08-10 | Outpatient (CLI) | payer BC ==
[2020-08-10 11:37] VITALS: BP 108/61
--- NOTE | 2020-08-10 11:37 | ER [facility] ASSESSMENT REPORT ---
Intake - In the Last 14 days Have you traveled outside [place]?: No Have you been in close contact with someone CONFIRMED: No Worked in Healthcare?: Yes - Symptoms Subjective Fever([facility] feverish): Yes Chills: No Muscule Aches: No Runny Nose: No Sore Throat: Yes Cough (New or worsening chronic cough): No Shortness of breath: No Nausea or Vomiting: No Headache: Yes Abdominal Pain: No Diarrhea(3 or more loose stools in last 24 hours): No - Do you have any of the following Chronic lung disease: Asthma or emphysema or COPD: No Cystic Fibrosis: No Diabetes: No High Blood Pressure: No Cardiovascular Disease: No Chronic Kidney Disease: No Chronic Liver Disease: No Chronic blood disorder like Sickle Cell Disease: No Weak immune system due to disease or medication: No Neurologic condition that limits movement: No Developmental delay - Moderate to Severe: No Recent (within past 2 weeks) or current : No Morbid Obesity (>100 pounds over ideal weight): No - Objective Temperature: 98.2 F Pulse Rate: 81 Respiratory Rate: 18 Blood Pressure: 108/61 O2 Sat by Pulse Oximetry: 98 Objective: Given above, testing performed: If Testing Performed: Test Specimen Type Sent to General - General Information source: Patient Notes: Patient presents to the [facility] for screening for the coronavirus. Patient has had symptoms for the past 2 days including fever sore throat and headache. Patient does report loss of taste and smell. - Related Data Allergies/Adverse Reactions: No Known Allergies Allergy (Unverified 02/16/20 21:15) Past Medical History - General Information source: Patient - Social History Smoking Status: Never Smoker - Medical History Medical History: Negative Past Surgical History: Reports: Oral Surgery Physical Exam - Notes Notes: The patient was evaluated during the global Covid 19 pandemic, and that diagnosis was suspected/considered upon their initial presentation. Their evaluation and testing was consistent with current guidelines for patients who present with complaints or symptoms that may be related to Covid 19. Full physical exam could not be performed due to covid 19 isolation protocols. Constitutional: Nontoxic appearance, no acute distress Eyes: Nonicteric, extraocular movements intact, sclera clear ENT: Posterior pharynx clear without exudate Cardiovascular: Heart rate and rhythm regular Respiratory: Breath sounds clear bilaterally, nonlabored breathing, no use of accessory muscles, no tachypnea Gastrointestinal: Abdomen not distended Muculoskeletal: Moves all extremities well, normal gait Skin: Normal color Neuro: Awake alert oriented, normal speech Psych: Normal mood and affect Diagnostic Results Laboratory Results: Patient presents with symptoms worrisome for possible Covid 19. Patient does not have emergency worrying symptoms such as difficulty breathing, shortness of breath, chest pain, pressure, confusion or cyanosis. Patient appears suitable for discharge as they are not of an advanced age, do not have any chronic medical conditions such as diabetes, CAD, immune deficiency, chronic lung disease or chronic kidney disease. Patient's vital signs are stable and patient is nontoxic in appearance. Good return precautions have been discussed with patient, patient verbalized understanding and is agreeable with discharge plan of care at this time. Patient Education/Counseling Counseling/Education: Patient was provided with discharge information including: As a person under investigation for Covid 19, the [facility] and Human Services, division of public health advises you to adhere to the following guidance until your test results are reported to you. If your test result is positive, you will receive additional information from your provider and your local health department at that time. Remain at home until you are cleared by the health provider or public health authorities. Keep a log of visitors to your home, notify any visitors to your home of your isolation status. If you plan to move to a new address or leave the county, notify the local health department in your County. Call your doctor or seek care if you have an urgent medical need. Before seeking medical care, call ahead to get instructions from the provider before arriving at the medical office clinic or hospital. Notify them that you are being tested for the virus that causes Covid 19 so that arrangements can be made, as necessary, to prevent transmission to others in the healthcare setting. Next, notify the local health department in your county. If a medical emergency arises and you need to call 911, inform the first responders that you are being tested for the virus that causes Covid 19. Next, notify the local health department in your county. [facility] Discharge - Discharge Clinical Impression: Encounter for screening laboratory testing for COVID-19 virus Condition: Stable Disposition: Home; Selfcare
[2020-08-10 13:52] LABS: A TYPE INFLUENZA AG NEGATIVE (NEGATIVE); B INFLUENZA AG NEGATIVE (NEGATIVE)
== END ==
LOC: RDC 10:52
PROVIDERS: ATTEND Nurse Practitioner Family
DX: U07.1 COVID-19 (principal); R50.9 Fever, unspecified; J02.9 Acute pharyngitis, unspecified; R51.9 Headache, unspecified; R43.8 Other disturbances of smell and taste
CPT/HCPCS: 87070; 87880; 87804; U0003; C9803; 87635

== ENCOUNTER → 2020-08-27 | Outpatient (CLI) | payer BC | LOC: EMPHEALTH 10:25 | PROVIDERS: ATTEND Internal Medicine | DX: Z23 Encounter for immunization (principal) | CPT/HCPCS: 91300 ==